=== PATIENT | female | born 1950 | race Caucasian/White ===

== ENCOUNTER → 2017-02-12 | Outpatient (CLI) | payer OTHER ==
--- NOTE | 2017-02-12 14:31 | EKG ---
Date Performed: 02/12/2017 Time Performed: 11:51:15 PTAGE: 66 years EKG: Sinus rhythm Nonspecific T wave changes ABNORMAL ECG COMPARED TO PRIOR ELECTROCARDIOGRAM, T wave changes are slig htly worse. PREVIOUS TRACING : 11/10/2002 03.33 DOCTOR: Raman Mendez Interpretating Date/Time 02/12/2017 14:29:15
== END ==
LOC: HCAV 11:37
DX: R07.89 Other chest pain (principal)
CPT/HCPCS: 93005